=== PATIENT | female | born 1965 | race Two or more races ===

== ENCOUNTER 2016-09-14 22:10 | Emergency (ER) | payer BC | END 2016-09-14 23:15 | disposition home or self-care (01) | LOC: D.ER 22:10 | DX: M25.571 Pain in right ankle and joints of right foot (principal) ==

== ENCOUNTER 2016-10-13 22:32 | Emergency (ER) | payer BC | END 2016-10-13 23:01 | disposition home or self-care (01) | LOC: D.ER 22:32 | DX: J03.90 Acute tonsillitis, unspecified (principal) ==

== ENCOUNTER 2018-02-05 10:30 | Day surgery (SDC) | payer BC ==
[~2018-02-05] VITALS: Ht 167.6 cm; Wt 81.6 kg
[2018-02-05 12:28] LABS: BASOPHILS 0.2 % (0-2); EOSINOPHILS 2.1 % (0-7); HEMATOCRIT 43.4 % (36.0-48.0); HEMOGLOBIN 14.9 g/dL (12-16); IMMATURE GRANULOCYTES 0.2 % (0-5); LYMPHOCYTES 25.9 % (15-50); MCH 31.6 pg (26.0-34.0); MCHC 34.3 g/dL (31.0-37.0); MCV 91.9 fL (80.0-100.0); MEAN PLATELET VOLUME 10.4 fL (7.4-10.4); MONOCYTES 6.1 % (2-11); NEUTROPHILS 65.5 % (40-80); PLATELET COUNT 252 10x3/uL (130-400); RBC 4.72 10x6/uL (4.00-5.40); RDW 12.7 % (11.5-14.5); WBC 8.5 10x3/uL (4.8-10.8)
[2018-02-05 12:35] LABS: CALC OSMOLALITY 277 mosm/kg (275-300); CALCIUM 9.1 mg/dL (8.5-10.1); CARBON DIOXIDE 30.6 mmol/L (21.0-32.0); CHLORIDE - SERUM 100 mmol/L (98-107); CREATININE - SERUM 0.7 mg/dL (0.6-1.3); GLUCOSE 98 mg/dL (74-106); POTASSIUM - SERUM 3.9 mmol/L (3.5-5.1); SODIUM 139 mmol/L (136-145); UREA NITROGEN 12 mg/dL (7-18); eGFR NON AFRICAN AMERICAN > 90 mL/min (90-120)
[2018-02-05 13:23] VITALS: BP 113/67; Ht 167.6 cm; Wt 81.6 kg
[2018-02-05 13:29] LABS: HCG URINE NEGATIVE (NEGATIVE)
--- NOTE | 2018-02-05 15:03 | NUR ---
REC'D FROM RR. FAMILY AT BEDSIDE. APPLE JUICE BROUGHT TO PT.
--- NOTE | 2018-02-05 15:30 | NUR ---
SHANE PUCKETT BROUGHT TO PT. AT BEDSIDE. WAITING FOR DR PHILLIPS TO SEE PT.
--- NOTE | 2018-02-05 16:00 | NUR ---
TOLERATED DIET. PT DID NOT HAVE A JOSE JUAN PAD AND ASKS FOR WIPES SO SHE COULD CLEAN UP. GOT PT WIPES AND MESH PANTIES AND A JOSE JUAN PAD.
--- NOTE | 2018-02-05 16:30 | NUR ---
AMBULATED TO BATHROOM AND VOIDED WITHOUT DIFFICULTY. IV DC'D WITH CATHETHER INTACT. PT WAS SEEN BY DR PHILLIPS AND ORDERS RECEIVED FOR DC WHEN CRITERIA MET.
--- NOTE | 2018-02-05 17:30 | NUR ---
MOTRIN AND PERCOCET ADMINISTERED PER ORDERS OF DR PHILLIPS FOR THE RIDE HOME. WRITTEN AND VERBAL DC INST GIVEN TO PT. VERBALIZED UNDERSTANDING.
--- NOTE | 2018-02-05 17:40 | NUR ---
DC'D HOME WITH FAMILY VIA PRIVATE VEHICLE. TAKEN TO VEHICLE VIA WC. STABLE AT TIME OF DC.
== END 2018-02-05 17:40 | disposition home or self-care (01) ==
LOC: D.OPS 10:30
PROVIDERS: Obstetrics & Gynecology
DX: N95.0 Postmenopausal bleeding (principal); Z79.890 Hormone replacement therapy; Z01.812 Encounter for preprocedural laboratory examination